=== PATIENT | female | born 1980 | race Caucasian/White ===

== ENCOUNTER 2016-02-18 10:59 | Emergency (ER) | payer BC ==
[2016-02-18 11:43] VITALS: BP 138/92
--- NOTE | 2016-02-18 12:19 | UC ---
Abdominal Pain Female HPI - HPI Summary HPI Summary: 24 HOURS OF WORSENING UPPER ABDOMINAL PAIN RADIATING TO BACK. PT HAS MILD NAUSEA. NO FEVER. PAIN IS WORSE WHEN SHE DRINKS FLUID. SHE HAS NOT TRIED TO EAT ANYTHING SINCE ONSET OF PAIN. HAS KNOWN DECREASED GALLBLADDER FUNCTION. HAD PALE APPEARING BM THIS MORNING. - History of Current Complaint Chief Complaint: UCAbdominalPain Stated Complaint: ABDOMINAL PAIN Time Seen by Provider: 02/18/16 12:00 Hx Obtained From: Patient Hx Last Menstrual Period: 02/07/16 Onset/Duration: Gradual Onset, Lasting Hours, Still Present Timing: Constant Severity Initially: Moderate Severity Currently: Moderate Pain Intensity: 5 Pain Scale Used: 0-10 Numeric Location: Other - UPPER ABDOMEN Radiates: Yes Radiates to: Back Character: Colicy, Sharp Aggravating Factor(s): Other: - DRINKING FLUID Alleviating Factor(s): Nothing Associated Signs and Symptoms: Positive: Back Pain, Decreased Appetite, Nausea Allergies/Adverse Reactions: Allergies Allergy/AdvReac Type Severity Reaction Status Date / Time Morphine Allergy Vomiting Verified 05/14/15 09:17 Phenobarbital Allergy Vomiting Verified 05/14/15 09:17 Home Medications: Home Medications Varenicline Tartrate [Chantix] 1 tab PO DAILY 02/18/16 [History Confirmed ] PMH/Surg Hx/FS Hx/Imm Hx Endocrine History Of: Denies: Diabetes, Thyroid Disease Cardiovascular History Of: Denies: Cardiac Disorders, Hypertension, Pacemaker/ICD Respiratory History Of: Reports: Asthma - CHILD, Pneumonia Denies: COPD GI/ History Of: Reports: Gall Bladder Disease, Kidney Stones Denies: Ulcer Neurological History Of: Reports: Seizures - Asthmatic Seizures in past, Migraine Cancer History Of: Denies: Breast Cancer - Surgical History Surgical History: Yes Surgery Procedure, Year, and Place: Mammoplasty 2006, 2 ovarian cysts removed. BACK SURGERY-2015 - Family History Known Family History: Positive: Other - Anesthesia rxn Negative: Hypertension Family History: R & n/C - Social History Alcohol Use: Occasionally Substance Use Type: None Smoking Status (MU): Current Every Day Smoker Type: Cigarettes Amount Used/How Often: 1/2 PPD Length of Time of Smoking/Using Tobacco: 15+ years Have You Smoked in the Last Year: Yes Review of Systems Constitutional: Fatigue Respiratory: Negative Cardiovascular: Negative Gastrointestinal: Abdominal Pain, Other - NAUSEA Genitourinary: Negative All Other Systems Reviewed And Are Negative: Yes Physical Exam Triage Information Reviewed: Yes Appearance: Well-Appearing, Well-Nourished, Pain Distress - MILD Vital Signs: Initial Vital Signs Temp 98.1 F 02/18/16 11:37 Pulse 83 02/18/16 11:37 Resp 18 02/18/16 11:37 BP 138/92 02/18/16 11:37 Pulse Ox 100 02/18/16 11:37 Vital Signs Reviewed: Yes Eyes: Positive: Conjunctiva Clear ENT: Positive: Hearing grossly normal Neck: Positive: Supple Respiratory Exam: Normal Cardiovascular Exam: Normal Abdomen Description: Positive: Soft, Other: - TTP DIFFUSELY ACROSS UPPER ABDOMEN. RUQ>LUQ. POSITIVE ZHENG'S. Negative: CVA Tenderness (R), CVA Tenderness (L), Distended, Guarding Bowel Sounds: Positive: Present Musculoskeletal: Positive: No Edema Neurological: Positive: Alert Psychological: Positive: Age Appropriate Behavior Skin: Negative: rashes Abd Pain Female Course/Dx - Differential Dx/Diagnosis Provider Diagnoses: ABDOMINAL PAIN - SUSPECT GB DISEASE - Physician Notification/Consults Discussed Patient Care With: DR. HADLEY Time Discussed With Above Provider: 12:44 Instructed by Provider To: Transfer - TO [facility] [place] [facility] BY PRIVATE CAR Discharge - Discharge Plan Condition: Stable Disposition: TRANS HIGHER LVL OF CARE FAC Referrals: Rito Bundy MD [Primary Care Provider] -
== END 2016-02-18 13:16 | disposition left against medical advice (07) ==
LOC: UCEAST 10:59
DX: M54.9 Dorsalgia, unspecified (principal); Z88.6 Allergy status to analgesic agent; Z88.2 Allergy status to sulfonamides; F17.210 Nicotine dependence, cigarettes, uncomplicated
CPT/HCPCS: 99212; G0463

== ENCOUNTER 2016-02-18 13:36 | Emergency (ER) | payer BC ==
[2016-02-18 13:57] VITALS: BP 132/92
== END 2016-02-18 17:05 | disposition left against medical advice (07) ==
LOC: ED 13:36
DX: R10.10 Upper abdominal pain, unspecified (principal); Z53.21 Procedure and treatment not carried out due to patient leaving prior to being seen by health care provider

== ENCOUNTER 2016-03-08 10:59 | Day surgery (SDC) | payer BC ==
[~2016-03-08 10:59] MED LIST: Buffered Lidocaine 1% SYR 3ML* 3 ML/SYR SYRINGE INTRADERM ONE; Dexamethasone TAB* 4 MG PO ONE; Famotidine IV* 10 MG/ML 2 ML (20 mg) IV ONE; HYDROmorphone INJ* 1 MG/ML CARPUJECT SYRINGE IV PRN; PROCHLORPERAZINE INJ 5 MG/ML 2 ML VIAL IV PRN; Scopolamine 1.5 mg* PATCH TRANSDERM ONE; oxyCODONE/Acetamin 5/325 MG* TAB PO PRN
[2016-03-08] MEDS ORDERED: Famotidine IV* 10 MG/ML 2 ML (20 mg) ONE (11:18)
[2016-03-08 11:19] LABS: Manual Entry Verification HAN0055; UR Preg Internal Control QC Line Present
[2016-03-08] MEDS ORDERED: Dexamethasone TAB* 4 MG ONE (11:19)
[2016-03-08] MEDS ORDERED: Buffered Lidocaine 1% SYR 3ML* 3 ML/SYR SYRINGE ONE (11:19)
[2016-03-08] MEDS ORDERED: Scopolamine 1.5 mg* PATCH ONE (11:19)
[2016-03-08] MEDS ORDERED: ceFAZolin 2 GM PREMIX (*) 2 GM/50 ML BAG IVPB ONE (11:20)
[2016-03-08] MEDS ORDERED: HYDROmorphone INJ* 1 MG/ML CARPUJECT SYRINGE ONE (12:01)
[2016-03-08] MEDS ORDERED: KETAMINE HCL* 50 MG/ML 10 ML VIAL ONE (12:02)
[2016-03-08] MEDS ORDERED: Atracurium* 10 MG/ML 10 ML VIAL ONE (12:02)
[2016-03-08] MEDS ORDERED: Midazolam* 1 MG/ML 5 ML VIAL (5 MG) ONE (12:02)
[2016-03-08] MEDS ORDERED: Bupivacaine 0.25% EPI 200,000* 30 ML SDV ONE (13:29)
[2016-03-08] MEDS ORDERED: diPHENhydraMINE IV* 50 MG/ML 1 ml VIAL (BENADRYL) ONE (13:49)
[2016-03-08] MEDS ORDERED: Ondansetron INJ* 2 MG/ML VIAL ONE (14:17)
[2016-03-08] MEDS ORDERED: PROCHLORPERAZINE INJ 5 MG/ML 2 ML VIAL ONE ×2 (14:17→15:41)
[2016-03-08] MEDS ORDERED: Glycopyrrolate IV* 0.2 MG/ML 1 ML VIAL ONE (14:17)
[2016-03-08] MEDS ORDERED: Neostigmine Methylsulfate* 2 MG/2 ML SYRINGE ONE (14:17)
[2016-03-08] MEDS ORDERED: Propofol* 10 MG/ML 20 ML BTL IV PUSH ONE (14:17)
[2016-03-08] MEDS ORDERED: Lidocaine 2% MPF* 2 ML VIAL ONE (14:23)
--- NOTE | 2016-03-08 14:34 | PN ---
Progress Note - Progress Note Note: Brief Operative Note: Preop Dx: gallbladder dyskinesia Postop Dx: same Procedure: laparoscopic cholecystectomy Anesthesia: GET Surgeon: Beatriz Asst: KARIN Guillen EBL: none Fluids: 1100 ml RL Specimen: GB
[2016-03-08] MEDS ORDERED: oxyCODONE/Acetamin 5/325 MG* TAB ONE (15:51)
[2016-03-08 16:15] VITALS: BP 113/70
--- NOTE | 2016-03-09 07:21 | OP ---
DATE OF OPERATION: 03/08/15 - [facility] DATE OF : 82 SURGEON: Ari Henderson MD [employer] WASHER: KARIN Rodriguez ANESTHESIOLOGIST: Dr. Washington. ANESTHESIA: General with local. PRE-OP DIAGNOSIS: Chronic acalculous cholecystitis, i.e., biliary dyskinesia. POST-OP DIAGNOSIS: Chronic acalculous cholecystitis, i.e., biliary dyskinesia. OPERATIVE PROCEDURE: Laparoscopic cholecystectomy. ESTIMATED BLOOD LOSS: Minimal. IV FLUIDS: 1 L of crystalloid. SPECIMENS: Gallbladder. COMPLICATIONS: None. WOUND CLASSIFICATION: II. DRAINS: None. BRIEF HISTORY: The patient is a 35-year-old woman who has a long history of right upper quadrant abdominal pain, more recently underwent an ultrasound of the gallbladder which was normal, but the HIDA scan showed no ejection fraction after administration of CCK consistent with biliary dyskinesia. She is now to undergo a cholecystectomy. DESCRIPTION OF PROCEDURE: Written informed consent was obtained, the abdomen was marked with inedible ink and preoperative antibiotics were administered. The patient was taken to the operating room and placed in the supine position. Sequential compression devices and a warming blanket were applied. General anesthesia was administered and the abdomen was prepped and draped in the usual sterile fashion. Time-out verification was completed. Next, a small transverse incision was made just above the umbilicus to the midline. The peritoneal cavity was entered under direct vision. A 12-mm blunt port was inserted and the abdomen was insufflated to 15 mmHg. Under direct vision, an 11-mm epigastric port was placed and two 5-mm ports were placed in the right side of the abdominal wall. The gallbladder was identified. It was bluish in color without wall thickening , pericholecystic fluid, or signs and symptoms of acute or chronic inflammation. The liver appeared to be normal. The stomach was normal and there were no other abnormalities noted in the right upper quadrant. The gallbladder was then grasped and elevated up over the liver bed. Gentle traction to the right lower quadrant was placed on the infundibulum of the gallbladder and the peritoneum along the medial and lateral aspects of the inferior part of the gallbladder was taken down to identify and dissect the cystic duct and cystic artery as they entered the gallbladder. I took a considerable portion of the inferior part of the gallbladder off the liver bed using a critical view technique to assure myself of the structures. The cystic duct was of expected normal caliber. Once these two structures were identified , the cystic duct and artery were triply clipped and divided. The gallbladder was removed from the liver bed using cautery and brought out through the epigastric incision. The liver bed was then evaluated. There was no evidence of bleeding or bile leak. All ports were removed under direct vision of the camera. There was no abdominal wall bleeding. The umbilical fascia was closed with interrupted 0 Polysorb suture. The skin at all four incisions were approximated with subcuticular 4-0 Polysorb suture. Steri-Strips and sterile dressings were applied. The patient tolerated the procedure well, was taken to the recovery room in stable condition. CC: [facility] [address]; [facility] * [id number]/[facility] #: [id number] GRISD
[2016-03-11] MEDS ORDERED: Scopolamine PATCH Remove* 1 NOTE MISC PATCH OFF ONE (06:00)
== END 2016-03-08 16:27 | disposition home or self-care (01) ==
LOC: OR 10:59
PROVIDERS: ATTEND Surgery
DX: K81.1 Chronic cholecystitis (principal); F17.210 Nicotine dependence, cigarettes, uncomplicated
CPT/HCPCS: 81025; 88304; A9270-GY; J0690; J0780; J1170; J1200; J2250; J2405; J2704; J8540

== ENCOUNTER 2016-05-02 07:55 | Emergency (ER) | payer BC ==
[2016-05-02] MEDS ORDERED: Ondansetron INJ* 2 MG/ML VIAL IV ONE (08:24)
[2016-05-02] MEDS ORDERED: Ketorolac INJ* 30 MG/ML 1 ML VIAL IV ONE (08:24)
[2016-05-02] MEDS ORDERED: NS 0.9% 1000 ML* 1,000 ML IV ONE ×2 (08:24→11:04)
[2016-05-02] MEDS ORDERED: LORazepam INJ* 2 MG/ML 1 ML VIAL IV PUSH ONE (08:25)
[2016-05-02] MEDS ORDERED: HYDROmorphone INJ* 1 MG/ML CARPUJECT SYRINGE IV ONE (10:37)
[2016-05-02] MEDS ORDERED: diPHENhydraMINE IV* 50 MG/ML 1 ml VIAL (BENADRYL) IV ONE (11:04)
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
[2016-05-02 12:40] VITALS: BP 107/63
--- NOTE | 2016-05-02 12:48 | RAD ---
INDICATION: Right knee pain after a fall COMPARISON: None TECHNIQUE: 3 view radiograph of the right knee. FINDINGS: Inadequate patient positioning causes highly limited radiographs of the right knee. The visualized bones are well-corticated and properly aligned. The joint spaces are properly maintained. There is no radiographic evidence of joint effusion. There is no acute fracture, dislocation or other focal bony abnormality. IMPRESSION: Normal knee radiograph as described above. If the patient's symptoms persist, follow-up imaging is recommended.
== END 2016-05-02 12:45 | disposition home or self-care (01) ==
LOC: ED 07:55
DX: S83.91XA Sprain of unspecified site of right knee, initial encounter (principal); M25.561 Pain in right knee; F41.9 Anxiety disorder, unspecified; F17.210 Nicotine dependence, cigarettes, uncomplicated; S80.01XA Contusion of right knee, initial encounter; X58.XXXA Exposure to other specified factors, initial encounter; Y93.9 Activity, unspecified; Y92.9 Unspecified place or not applicable
CPT/HCPCS: 96374; 96375; 99284; J1170; J1885; J2060; J2405

== ENCOUNTER 2017-02-18 07:28 | Inpatient (IN) | payer BC ==
[2017-02-18] MEDS ORDERED: Penicillin G Potassium IV* 5,000,000 UNITS in NS 0.9% 100 ML* 100 ML IVPB ONE (08:40)
[2017-02-18] MEDS ORDERED: Oxytocin in LR* 20 UNITS/1,000 ML BAG IVPB SCH (09:00)
[2017-02-18] MEDS ORDERED: Oxytocin in LR* 20 UNITS/1,000 ML BAG IVPB ONE (09:22)
[2017-02-18] MEDS ORDERED: Promethazine INJ(RESTRICTED)* 25 MG/ML 1 ML VIAL IV ONE (14:45)
[2017-02-18] MEDS ORDERED: Nalbuphine* 20 MG/ML 1 ML VIAL IV ONE (14:45)
[2017-02-18] MEDS ORDERED: Nalbuphine* 20 MG/ML 1 ML VIAL ONE (15:16)
[2017-02-18] MEDS: Penicillin G Potassium IV* 2,500,000 UNITS in NS 0.9% 100 ML* 100 ML IVPB SCH ×2 (15:36→19:29)
[2017-02-18] MEDS ORDERED: OBEPIDURAL* 0 ML EPIDURAL ONE (17:09)
[2017-02-18] MEDS ORDERED: Famotidine TAB* 20 MG PO PRN (18:19)
[2017-02-18] MEDS ORDERED: EPHEDrine (Pressors)* 50 MG/ML VIAL IV PUSH PRN ×2 (18:19)
[2017-02-18] MEDS ORDERED: Sodium Citrate/Citric Acid* 15 ML UDC PO PRN (18:19)
[2017-02-18] MEDS ORDERED: Phenylephrine IV* 40 MCG/ML 10 ML SYRINGE IV PUSH PRN ×2 (18:19)
[2017-02-18] MEDS ORDERED: Ropivacaine 0.1% EPIDURAL 300 ML EPIDURAL SCH ×2 (19:00)
[2017-02-18] MEDS ORDERED: OBEPIDURAL* 250 ML EPIDURAL SCH (19:00)
[2017-02-18] MEDS ORDERED: Lidocaine 1.5% EPI 1:200,000* 30 ML SDV ONE ×2 (20:34→23:49)
[2017-02-18] MEDS ORDERED: Methylergonovine INJ* 0.2 MG/ML 1ML AMP IM ONE (23:53)
[2017-02-18] MEDS ORDERED: Witch Hazel PAD* JAR TOPICAL PRN (23:53)
[2017-02-18] MEDS ORDERED: Misoprostol TAB* 200 MCG PR ONE (23:53)
[2017-02-18] MEDS ORDERED: Glycerin ADULT SUPP PR PRN (23:53)
[2017-02-18] MEDS ORDERED: Acetaminophen TAB* 325 MG PO PRN (23:53)
[2017-02-18] MEDS ORDERED: Dibucaine 1% 28.35 GM TUBE PR PRN (23:53)
[2017-02-18] MEDS ORDERED: Ibuprofen TAB* 600 MG ONE (23:57)
[2017-02-19] MEDS ORDERED: Misoprostol TAB* 200 MCG ONE (00:05)
[2017-02-19] MEDS: Penicillin G Potassium IV* 2,500,000 UNITS in NS 0.9% 100 ML* 100 ML IVPB SCH (00:13)
[2017-02-19] MEDS ORDERED: Methylergonovine INJ* 0.2 MG/ML 1ML AMP ONE (00:17)
[2017-02-19] MEDS ORDERED: oxyCODONE/Acetamin 5/325 MG* TAB ONE (00:26)
[2017-02-19] MEDS: oxyCODONE/Acetamin 5/325 MG* TAB PO PRN ×4 (00:29→19:46)
[2017-02-19] MEDS: Ibuprofen TAB* 600 MG PO PRN ×3 (06:33→18:26)
[2017-02-19] MEDS ORDERED: Simethicone TAB* 80 MG TAB.CHEW PO SCH (08:30)
[2017-02-19 08:47] LABS: ABS Basophils 0.1 10^3/ul (0-0.2); ABS Eosinophils 0.1 10^3/ul (0-0.6); ABS Monocytes 0.7 10^3/ul (0-0.8); ABS Neutrophils 11.6 10^3/ul (1.5-7.7); ABS Nucleated RBC 0 10^3/ul; Eosinophil % 0.7 % (0-6); Hematocrit 29 % (35-47); Hemoglobin 10.1 g/dl (12.0-16.0); Lymphocyte % 19.4 % (25-47); Mean Corpuscular HGB Conc 35 g/dl (31-36); Mean Corpuscular Hemoglobin 35 pg (27-31); Mean Corpuscular Volume 101 fL (80-97); Mean Platelet Volume 8 um3 (7.4-10.4); Nucleated Red Blood Cells % 0; Platelet Count 170 10^3/ul (150-450); Red Blood Count 2.92 10^6/ul (4.0-5.4); Red Cell Distribution Width 13 % (10.5-15); White Blood Count 15.5 10^3/ul (3.5-10.8)
[2017-02-19] MEDS: Docusate CAP* 100 MG PO SCH ×3 (09:00→19:59)
[2017-02-19] MEDS: Ferrous Gluconate TAB* 324 MG TAB PO SCH ×2 (12:06→19:45)
[2017-02-20] MEDS: Ibuprofen TAB* 600 MG PO PRN ×2 (00:27→06:06)
[2017-02-20 08:02] VITALS: BP 103/56
[2017-02-20] MEDS: Docusate CAP* 100 MG PO SCH (10:01)
[2017-02-20] MEDS: Ferrous Gluconate TAB* 324 MG TAB PO SCH (10:01)
== END 2017-02-20 10:56 | disposition home or self-care (01) | DRG 541 ==
LOC: MCHOBOUT 07:28 → MCHOB 08:38
PROVIDERS: ADMIT Obstetrics & Gynecology; ATTEND Obstetrics & Gynecology
PROC: 10E0XZZ Delivery of Products of Conception, External Approach (ICD-10-PCS; principal; 2017-02-18)
PROC: 3E033VJ Introduction of Other Hormone into Peripheral Vein, Percutaneous Approach (ICD-10-PCS; 2017-02-18)
PROC: 10907ZC Drainage of Amniotic Fluid, Therapeutic from Products of Conception, Via Natural or Artificial Opening (ICD-10-PCS; 2017-02-18)
PROC: 10E0XZZ Delivery of Products of Conception, External Approach (ICD-10-PCS; 2017-02-18)
PROC: 10D17Z9 Manual Extraction of Products of Conception, Retained, Via Natural or Artificial Opening (ICD-10-PCS; 2017-02-18)
DX: O48.0 Post-term pregnancy (principal); O72.2 Delayed and secondary postpartum hemorrhage; O99.824 Streptococcus B carrier state complicating childbirth; F32.9 Major depressive disorder, single episode, unspecified; O99.334 Smoking (tobacco) complicating childbirth; F17.210 Nicotine dependence, cigarettes, uncomplicated; O99.344 Other mental disorders complicating childbirth; Z3A.40 40 weeks gestation of pregnancy; Z37.0 Single live birth
CPT/HCPCS: 36415; 85025; 86850; 86900; 86901; A9270-GY; J2210; J2300; J2540; J2550; J2795

== ENCOUNTER 2017-03-08 16:36 | Day surgery (SDC) | payer BC ==
[2017-03-08] MEDS ORDERED: NS 0.9% 1000 ML* 1,000 ML IV ONE (16:57)
[2017-03-08 17:17] LABS: ABS Basophils 0.1 10^3/ul (0-0.2); ABS Eosinophils 0.2 10^3/ul (0-0.6); ABS Lymphocytes 3.1 10^3/ul (1.0-4.8); ABS Monocytes 0.6 10^3/ul (0-0.8); ABS Neutrophils 7.2 10^3/ul (1.5-7.7); ABS Nucleated RBC 0 10^3/ul; Eosinophil % 1.3 % (0-6); Hematocrit 35 % (35-47); Hemoglobin 11.8 g/dl (12.0-16.0); Lymphocyte % 27.6 % (25-47); Mean Corpuscular HGB Conc 34 g/dl (31-36); Mean Corpuscular Hemoglobin 33 pg (27-31); Mean Corpuscular Volume 97 fL (80-97); Mean Platelet Volume 7 um3 (7.4-10.4); Nucleated Red Blood Cells % 0; Platelet Count 273 10^3/ul (150-450); Red Blood Count 3.62 10^6/ul (4.0-5.4); Red Cell Distribution Width 14 % (10.5-15); White Blood Count 11.2 10^3/ul (3.5-10.8)
[2017-03-08 17:32] LABS: EGFR Non-African American 123.2 (>60); INR 0.86 (0.77-1.02)
--- NOTE | 2017-03-08 18:18 | RAD ---
INDICATION: Postdelivery bleeding. COMPARISON: There are no prior studies available for comparison. TECHNIQUE: Multiple real-time transabdominal images of the pelvis were obtained. FINDINGS: The uterus is enlarged consistent with the state. The uterus measures 13.0 x 8.5 x 9.5 cm. There is a heterogeneous hyperechoic mass filling the uterine cavity measuring approximately 6.9 x 5.1 x 5.0 cm.. The endometrial echo measures up to 5.1 cm in thickness. This would be most consistent with retained products of conception. There is thinning of the posterior wall of the body of the uterus and the possibility of placenta accreta cannot be ruled out. The right ovary measured 2.0 x 2.0 x 1.5 cm. The left ovary measured 2.4 x 2.0 x 2.0 cm. There is vascular flow within both ovaries. No free intraperitoneal fluid is seen. IMPRESSION: 1. FINDINGS MOST CONSISTENT WITH RETAINED PRODUCTS OF CONCEPTION. 2. THE POSSIBILITY OF PLACENTA ACCRETA CANNOT BE RULED OUT.
[2017-03-08] MEDS ORDERED: ceFOXitin 2 GM IVPREMIX* 2 GM/50 ML BAG ONE (20:04)
[2017-03-08] MEDS ORDERED: Sodium Citrate/Citric Acid* 15 ML UDC ONE (20:04)
[2017-03-08] MEDS ORDERED: Chloroprocaine 2%* 20 ML VIAL ONE (20:42)
[2017-03-08] MEDS ORDERED: Propofol* 10 MG/ML 20 ML BTL IV PUSH ONE (20:42)
[2017-03-08] MEDS ORDERED: Lidocaine 2% PF * 5 ML VIAL ONE (20:43)
[2017-03-08] MEDS ORDERED: Methylergonovine INJ* 0.2 MG/ML 1ML AMP ONE (20:51)
[2017-03-08] MEDS ORDERED: OXYTOCIN* 10 UNITS/ML 1 ML VIAL ONE (20:52)
[2017-03-08] MEDS ORDERED: Ibuprofen TAB* 600 MG ONE (21:43)
[2017-03-08] MEDS ORDERED: fentaNYL* 50 MCG/ML 2 ML VIAL (100 MCG VIAL) IV PRN (22:02)
[2017-03-08] MEDS ORDERED: Ondansetron INJ* 2 MG/ML VIAL IV PRN (22:02)
[2017-03-08] MEDS ORDERED: Naloxone* 0.4 MG/ML 1 ML VIAL IV PRN (22:02)
[2017-03-08 23:12] VITALS: BP 108/55
--- NOTE | 2017-03-13 14:26 | ED ---
Carlos Bajwa Stephanie, scribed for Ariel Silverio MD on 03/08/17 at 1725 . Abdominal Pain/Female - HPI Summary HPI Summary: The pt is a 36 y/o F presenting to the ED with c/o abnormal vaginal bleeding since 15:30 today. The pt delivered 2 weeks ago, ruptured following delivery and is now releasing clots from vagina. Symptoms include abd cramping and chest discomfort. The pt denies recent illness. - History of Current Complaint Chief Complaint: EDOBProblems Stated Complaint: ABNORMAL BLEEDING Time Seen by Provider: 03/08/17 16:45 Hx Obtained From: Patient Hx Last Menstrual Period: 02/07/16 Onset/Duration: Sudden Onset, Lasting Hours - 2, Still Present Timing: Constant Severity Currently: Moderate Pain Intensity: 5 Pain Scale Used: 0-10 Numeric Location: Suprapubic Radiates: No Character: Cramping Aggravating Factor(s): Nothing Alleviating Factor(s): Nothing Associated Signs and Symptoms: Positive: Vaginal Bleeding, Other: - abd cramping and chest discomfort Allergies/Adverse Reactions: Allergies Allergy/AdvReac Type Severity Reaction Status Date / Time MS Latex [Latex] Allergy WELTS AND Verified 02/15/17 09:26 RASH MS Morphine [Morphine] Allergy Vomiting Verified 02/15/17 09:26 MS Phenobarbital Allergy Vomiting Verified 02/15/17 09:26 [Phenobarbital] SENSITIVE TO PAIN AdvReac Vomiting Uncoded 02/15/17 09:26 MED/ANESTHESIA Home Medications: Home Medications Acetaminophen TAB* [Tylenol TAB*] 650 mg PO Q6H PRN 03/08/17 [History Confirmed 03/08/17] Vit W/ Ferrous Fumara [ One Daily] 1 tab PO DAILY 03/08/17 [ History Confirmed 03/08/17] Ranitidine HCl [Zantac 150 Maximum Streng] 150 mg PO BID PRN 03/08/17 [History Confirmed 03/08/17] PMH/Surg Hx/FS Hx/Imm Hx Endocrine/Hematology History: Denies: Hx Diabetes, Hx Thyroid Disease Cardiovascular History: Denies: Hx Hypertension, Hx Pacemaker/ICD Respiratory History: Reports: Hx Asthma - A CHILD, Hx Chronic Bronchitis, Hx Pneumonia, Hx Seasonal Allergies Denies: Hx Chronic Obstructive Pulmonary Disease (COPD) GI History: Reports: Hx Gall Bladder Disease, Hx Gastroesophageal Reflux Disease - PRN OTC- ZANTAC, Hx Irritable Bowel, Other GI Disorders - IBS Denies: Hx Ulcer History: Reports: Hx Kidney Stones - STATES NONE RECENTLY, Other Problems/ Disorders - Hx kidney stones Denies: Hx Renal Disease Musculoskeletal History: Reports: Hx Back Problems, Hx Bursitis - RIGHT HIP Sensory History: Denies: Hx Contacts or Glasses, Hx Hearing Aid Opthamlomology History: Denies: Hx Contacts or Glasses Neurological History: Reports: Hx Headaches - STRESS HEADACHES, Hx Migraine, Hx Seizures - Asthmatic Seizures in past-NONE IN THE LAST 10 YEARS, Other Neuro Impairments/Disorders - Asthmatic seizures from age [age] Psychiatric History: Reports: Hx Depression Denies: Hx Panic Disorder - Surgical History Surgery Procedure, Year, and Place: Mammoplasty 2005, 2 ovarian cysts removed;. LUMBAR BACK SURGERY-2014;. COLONOSCOPIES;. GALLBLADDER REMOVED 03/2016; Hx Anesthesia Reactions: Yes - SEVERE NAUSEA AND VOMITING. PATCH BEHIND EAR SEEMED TO HELP - Immunization History Date of Tetanus Vaccine: UNKNOWN Infectious Disease History: No Infectious Disease History: Denies: Hx Clostridium Difficile, Hx Hepatitis, Hx Human Immunodeficiency Virus (HIV), Hx of Known/Suspected MRSA, Hx Shingles, Hx Tuberculosis, Hx Known/ Suspected VRE, Hx Known/Suspected VRSA, History Other Infectious Disease, Traveled Outside the [place] in Last 30 Days - Family History Known Family History: Positive: Other - Anesthesia rxn Negative: Hypertension Family History: R & n/C - Social History Occupation: Employed Full-time Lives: With Family Alcohol Use: None Alcohol Amount: 2-3 x's a week - last drink was last night Hx Substance Use: No Substance Use Type: Reports: None Hx Tobacco Use: Yes Smoking Status (MU): Current Every Day Smoker Type: Cigarettes Amount Used/How Often: <1/2 PPD X 5 YEARS Length of Time of Smoking/Using Tobacco: 15+ years Have You Smoked in the Last Year: Yes Review of Systems Negative: Fever, Chills Negative: Erythema Negative: Sore Throat Positive: Chest Pain - discomfort Negative: Shortness Of Breath, Cough Positive: Abdominal Pain. Negative: Vomiting, Nausea Positive: other - vaginal bleeding. Negative: dysuria, hematuria Negative: Myalgia, Edema Negative: Rash Neurological: Other - Negative: dizziness All Other Systems Reviewed And Are Negative: Yes Physical Exam - Summary Physical Exam Summary: Constitutional: Well-developed, Well-nourished, Alert. (-) Distressed Skin: Warm, Dry HENT: Normocephalic; Atraumatic Eyes: Conjunctiva normal Neck: Musculoskeletal ROM normal neck. (-) JVD, (-) Stridor, (-) Tracheal deviation Cardio: Rhythm regular, rate normal, Heart sounds normal; Intact distal pulses; The pedal pulses are 2+ and symmetric. Radial pulses are 2+ and symmetric. (-) Murmur Pulmonary/Chest wall: Effort normal. (-) Respiratory distress, (-) Wheezes, (-) Rales Abd: Mild suprapubic and RLQ tenderness, (-) Distension, (-) Guarding, (-) Rebound Musculoskeletal: (-) Edema Lymph: (-) Cervical adenopathy Neuro: Alert, Oriented x3 Psych: Mood and affect Normal Triage Information Reviewed: Yes Vital Signs On Initial Exam: Initial Vitals Temp Pulse Resp BP Pulse Ox 97.9 F 109 20 127/76 99 03/08/17 16:37 03/08/17 16:37 03/08/17 16:37 03/08/17 16:37 03/08/17 16:37 Vital Signs Reviewed: Yes Diagnostics - Vital Signs Vital Signs Temp Pulse Resp BP Pulse Ox 03/08/17 17:00 96 14 111/65 97 03/08/17 16:50 104 10 97 03/08/17 16:48 111/74 03/08/17 16:37 97.9 F 109 20 127/76 99 - Laboratory Lab Results: Lab Results 03/08/17 Range/Units 17:01 WBC 11.2 H (3.5-10.8) 10^3/ul RBC 3.62 L (4.0-5.4) 10^6/ul Hgb 11.8 L (12.0-16.0) g/dl Hct 35 (35-47) % MCV 97 (80-97) fL MCH 33 H (27-31) pg MCHC 34 (31-36) g/dl RDW 14 (10.5-15) % Plt Count 273 (150-450) 10^3/ul MPV 7 L (7.4-10.4) um3 Neut % (Auto) 64.7 (38-83) % Lymph % (Auto) 27.6 (25-47) % Anderson % (Auto) 5.3 (1-9) % Eos % (Auto) 1.3 (0-6) % Baso % (Auto) 1.1 (0-2) % Absolute Neuts (auto) 7.2 (1.5-7.7) 10^3/ul Absolute Lymphs (auto) 3.1 (1.0-4.8) 10^3/ul Absolute Monos (auto) 0.6 (0-0.8) 10^3/ul Absolute Eos (auto) 0.2 (0-0.6) 10^3/ul Absolute Basos (auto) 0.1 (0-0.2) 10^3/ul Absolute Nucleated RBC 0 10^3/ul Nucleated RBC % 0 Result Diagrams: 03/08/17 17:01 03/08/17 17:01 Lab Statement: Any lab studies that have been ordered have been reviewed, and results considered in the medical decision making process. - Additional Comments Diagnostic Additional Comments: US Pelvis shows: 1. FINDINGS MOST CONSISTENT WITH RETAINED PRODUCTS OF CONCEPTION. 2. THE POSSIBILITY OF PLACENTA ACCRETA CANNOT BE RULED OUT. Abdominal Pain Fem Course/Dx - Course Course Of Treatment: Dr. Monreal is coming in to evaluate pt. US findings are concerning for retained products of conception. The pt is hemodynamically stable. She will go to the operating room with Dr. Monreal. - Diagnoses Provider Diagnoses: Retained products of conception - Provider Notifications Discussed Care Of Patient With: Kris Monreal - Dr. Monreal is coming in to evaluate pt. Time Discussed With Above Provider: 18:39 Discharge - Discharge Plan Condition: Stable Disposition: ADMITTED TO [facility] Referrals: Rito Bundy MD [Primary Care Provider] - 3 Days The documentation as recorded by the Carlos crawford Stephanie accurately reflects the service I personally performed and the decisions made by , Ariel Silverio MD.
--- NOTE | 2017-05-05 03:25 | OP ---
DATE OF OPERATION: 03/08/17 - [facility] DATE OF : 82 SURGEON: Kris Monreal MD ANESTHESIA: Spinal. PRE-OP DIAGNOSIS: Delayed bleeding, acute bleeding in the emergency room with an ultrasound suspicious for retained products of conception and ruled out products of conception. POST-OP DIAGNOSIS: Delayed bleeding, acute bleeding in the emergency room with an ultrasound suspicious for retained products of conception and ruled out products of conception. OPERATIVE PROCEDURE: Dilation and evacuation with suction curettage. ESTIMATED BLOOD LOSS: About 500 cc. SPECIMENS SENT TO PATHOLOGY: Endometrial curettings. FLUIDS: She received 500 cc of IV crystalloid fluid. URINE OUTPUT: 300 cc, clear. FINDINGS: Exam under anesthesia confirmed an enlarged and boggy uterus which sounded to about 15 cm with moderate amounts of tissue within the endometrial cavity. Her cervix was also noted to be about 3 cm dilated. DESCRIPTION OF PROCEDURE: The patient was taken to the operating room, where she was identified. She was placed on the operating table where a spinal anesthetic was obtained without difficulty. She was then placed in the dorsal lithotomy position, prepped and draped in the normal sterile fashion. Attention was then brought on to the patient's perineum where the bladder was then catheterized with a straight cath and drained of clear urine. Weighted speculum was inserted into the patient's vagina. The cervix was identified and grasped with a single-tooth tenaculum. It was noted to be about 3 cm dilated. A sound was then used and the uterus was sounded to about 50 cm and it was noted to be in an anteverted position. At this point, a 12-mm curved suction curette was introduced into the patient's uterus attached to suction and suction curettage was performed. Moderate amounts of tissue were removed. After the uterus was deemed to be empty, a sharp curettage was then performed to confirm complete denudation of endometrial cavity. The cavity was deemed to be clear. At this point, all the instruments were then removed from the patient 's vagina. Under exam by anesthesia by manual exam, the uterus was noted to be firm and about 12 weeks' size. All the instruments were then removed from the patient's vagina. Sponge, lap, and needle counts were correct x2. She was then transferred to the recovery room area in stable condition. [id number]/[facility] #: [id number] [facility]
== END 2017-03-08 23:14 | disposition home or self-care (01) ==
LOC: ED 16:36 → OR 21:17
PROVIDERS: ATTEND Obstetrics & Gynecology
DX: O72.2 Delayed and secondary postpartum hemorrhage (principal); I49.3 Ventricular premature depolarization; F17.210 Nicotine dependence, cigarettes, uncomplicated
CPT/HCPCS: 36415; 76856; 80053; 83605; 85025; 85610; 85730; 86850; 86900; 86901; 88305; 99285; A9270-GY; J0694; J2210; J2400; J2590; J2704